=== PATIENT | female | born 1995 | race Two or more races ===

== ENCOUNTER 2019-11-11 23:33 | Emergency (ER) | payer OTHER ==
[~2019-11-11] VITALS: Ht 165.1 cm; Wt 108.9 kg
--- NOTE | 2019-11-11 23:40 | NUR ---
BIBRA 38 FOR C/O RUQ ABD PAIN X 2 WEEKS WORSE TONIGHT, +N/V. DIARRHEA X2 YESTERDAY. NO BM TODAY. 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 PT WAS PLACED ON A MONITOR . VSS.
[2019-11-11] MEDS ORDERED: ONDANSETRON HCL/PF 4 MG/2 ML VIAL ONE (23:47)
[2019-11-11] MEDS ORDERED: MORPHINE SULFATE INJ 4 MG/ML DISP.SYRIN ONE (23:47)
[2019-11-11 23:58] LABS: BASOPHILS # (AUTO) 0.1 /CMM (0.0-0.2); BASOPHILS % (AUTO) 0.8 % (0.0-2.0); EOSINOPHILS % (AUTO) 2.1 % (0.0-6.0); HEMATOCRIT 40 % (33-45); HEMOGLOBIN 13.2 g/dL (11.5-14.8); LYMPHOCYTES # (AUTO) 5.2 /CMM (0.8-4.8); LYMPHOCYTES % (AUTO) 31.5 % (20.0-44.0); MEAN CORPUSCULAR HGB CONC 33 g/dl (31.0-36.0); MEAN CORPUSCULAR VOLUME 95 fL (82-100); MONOCYTES # (AUTO) 0.7 /CMM (0.1-1.30); MONOCYTES % (AUTO) 4.5 % (2.0-12.0); NEUTROPHILS # (AUTO) 10.1 /CMM (1.8-8.9); NEUTROPHILS % (AUTO) 61.1 % (43.0-81.0); PLATELET COUNT (AUTO) 260 /CMM (150-450); WHITE BLOOD COUNT (AUTO) 16.5 K/uL (4.3-11.0)
--- NOTE | 2019-11-11 23:58 | NUR ---
PT REPORTED A SUDDEN RELIEF OF PAIN AND VOMITING AFTER SHE WAS TRANSFERRED TO THE BED. REFUSED MORPHINE AND ZOFRAN AT THIS TIME. WILL CONT TO MONITOR ,
[2019-11-12] MEDS ORDERED: MORPHINE SULFATE INJ 2 MG/ML DISP.SYRIN IV ONE
[2019-11-12] MEDS ORDERED: ONDANSETRON HCL/PF 4 MG/2 ML VIAL IVP ONE
[2019-11-12] MEDS ORDERED: IV NS 0.9% 1,000 ML BAG IV ONE
[2019-11-12 00:05] LABS: CALCIUM, SERUM 8.8 mg/dL (8.5-10.1); CREATININE 0.8 mg/dL (0.6-1.3); POTASSIUM 3.7 mmol/L (3.5-5.1)
[2019-11-12 00:12] LABS: ALBUMIN 3.6 g/dL (3.4-5.0); TOTAL PROTEIN, SERUM 7.8 g/dL (6.4-8.2)
--- NOTE | 2019-11-12 00:39 | NUR ---
PT AWAKE AND ALERT. RESTING IN BED . NO C/O PAIN OR DISCOMFORT. WILL CONT TO MONITOR ,
--- NOTE | 2019-11-12 01:06 | NUR ---
PT IS MEDICALLY CLEAR FOR D/C. IV removed. Catheter intact and site benign. Pressure and 4x4 applied to site. No bleeding noted.Patient discharged to home in stable condition. Written and verbal after care instructions given. Patient verbalizes understanding of instruction.
[2019-11-12 01:07] VITALS: BP 59/98
== END 2019-11-12 01:08 | disposition home or self-care (01) ==
LOC: ER 23:36 → EDBD 23:36 → ER 11-12 01:08
DX: K80.70 Calculus of gallbladder and bile duct without cholecystitis without obstruction (principal); R11.2 Nausea with vomiting, unspecified; E11.9 Type 2 diabetes mellitus without complications
CPT/HCPCS: 36415; 76705; 80048; 80076; 83690; 85025; 96360; 99284; J7030; J2270; J2405